=== PATIENT | female | born 1980 | race Two or more races ===

== ENCOUNTER 2021-08-21 16:22 | Emergency (ER) | payer BC, OTHER ==
[~2021-08-21] VITALS: Ht 172.7 cm; Wt 116.6 kg
[2021-08-21 16:54] VITALS: BP 124/61
--- NOTE | 2021-08-21 17:09 | NUR ---
PATIENT LEFT WITHOUT BEING SEEN BY DR. BRITO. NO FURTHER CARE PROVIDED FOR PATIENT.
== END 2021-08-21 17:09 | disposition left against medical advice (07) ==
LOC: MED 16:22
DX: M79.10 Myalgia, unspecified site (principal); Z53.21 Procedure and treatment not carried out due to patient leaving prior to being seen by health care provider